=== PATIENT | female | born 1960 | race Caucasian/White ===

== ENCOUNTER 2017-04-01 11:11 | Emergency (ER) | payer OTHER ==
[~2017-04-01 11:11] MED LIST: AMLODIPINE-BEN1 EACH PO; ATORVASTATIN CA10 MG PO; BACTRIM DS TABL1 TA2 PO; CENTRUM SILVER PO; HYDROCODON-ACE1 EAC9 PO; K-DUR20 ME1 PO; KLOR-CON PO; LIPITOR PO; LOTREL 5-20 MG1 CAP PO; MOTRIN400 MG PO; MULTI VITAMIN1 EACH PO; PERCOCET5/325 PO; PRILOSEC PO; SODIUM CHLORI1000 ML IR; VOLTAREN75 MG PO
== END 2017-04-01 12:27 | disposition home or self-care (01) ==
LOC: CFTX 11:11
DX: S01.91XA Laceration without foreign body of unspecified part of head, initial encounter (principal); I10 Essential (primary) hypertension; K21.9 Gastro-esophageal reflux disease without esophagitis; Z88.0 Allergy status to penicillin; W18.00XA Striking against unspecified object with subsequent fall, initial encounter; Y92.69 Other specified industrial and construction area as the place of occurrence of the external cause
CPT/HCPCS: 12001; 99283